=== PATIENT | male | born 1970 | race Caucasian/White ===

== ENCOUNTER 2018-06-12 08:32 | Emergency (ER) | payer MEDICAID, SELFPAY ==
[2018-06-12 08:33] VITALS: BP 161/104; PULSE 83; RESP 18; TEMP 36.6; O2SAT 98; BMI 28.8
--- NOTE | 2018-06-12 08:49 | ED.VISSUMM ---
- ER Visit Summary Date of Service: 06/12/18 Chief Complaint: Atraumatic left shoulder pain History of Present Illness: The patient is a 48 M no past medical or surgical history. Patient is right-hand dominant. He states the last 2 weeks he has had an achy constant pain in his left shoulder. Nothing particularly makes it better or worse. At times he believes there be swelling. He denies any fever or chills. No prior history of left shoulder problems nor any prior left shoulder surgeries. He denies any numbness or weakness to the left upper extremity. Physical Examination: Middle-aged male no acute distress. Vital signs are stable afebrile. We will. Neck nontender. Lungs clear to auscultation. Heart regular rhythm no murmur. Abdomen soft. Patient is moving all 4 extremities. Neurovascularly intact. Specifically the left shoulder there is no redness or warmth. He has full range of motion of the left shoulder including AB and adduction. Internal and external rotation. I do not appreciate any significant swelling. His C-spine and posterior shoulder are nontender. There are no gross bony deformities. The left clavicle is nontender. There is no AC abnormality or tenderness. Is able to lift his left arm over his head. He has full internal and external rotation. He has full flexion-extension of the left elbow, wrist and hand. Normal radial pulse. 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 Normal cap refill and touch sensation in his hand. Test Results: None Emergency Department Course and Treatment: I discussed with the patient imaging. I explained to him that we can do a left shoulder x-ray but given these had no trauma likelihood that B of any significant benefit today is unlikely. He understands he needs to follow-up with orthopedics if this does not improve with rest and ice and anti-inflammation. He may need more advanced imaging if this does not improve. Treatment Plan: Naprosyn 500 twice daily for 10 days. Rest and ice. Follow-up with [facility] if not improving. Disposition: Discharge Impression: Acute atraumatic, left shoulder pain of uncertain etiology This note was generated with [employer] dictation software. It may contain incorrect words, spelling, and punctuation that were not noted in review of the chart prior to signing ED Disposition - Plan for ED Patient: Chief Complaint: Upper Extremity Injury Referrals: NOT,DEFINED [Primary Care Provider] -
--- NOTE | 2018-06-12 08:53 | ED.DCSUM_ITS ---
- ER Visit Summary Date of Service: 06/12/18 Chief Complaint: Atraumatic left shoulder pain History of Present Illness: The patient is a 48 M no past medical or surgical history. Patient is right-hand dominant. He states the last 2 weeks he has had an achy constant pain in his left shoulder. Nothing particularly makes it better or worse. At times he believes there be swelling. He denies any fever or chills. No prior history of left shoulder problems nor any prior left shoulder surgeries. He denies any numbness or weakness to the left upper extremity. Physical Examination: Middle-aged male no acute distress. Vital signs are stable afebrile. We will. Neck nontender. Lungs clear to auscultation. Heart regular rhythm no murmur. Abdomen soft. Patient is moving all 4 extremities. Neurovascularly intact. Specifically the left shoulder there is no redness or warmth. He has full range of motion of the left shoulder including AB and adduction. Internal and external rotation. I do not appreciate any significant swelling. His C-spine and posterior shoulder are nontender. There are no gross bony deformities. The left clavicle is nontender. There is no AC abnormality or tenderness. Is able to lift his left arm over his head. He has full internal and external rotation. He has full flexion-extension of the left elbow, wrist and hand. Normal radial pulse. 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 Normal cap refill and touch sensation in his hand. Test Results: None Emergency Department Course and Treatment: I discussed with the patient imaging. I explained to him that we can do a left shoulder x-ray but given these had no trauma likelihood that B of any significant benefit today is unlikely. He understands he needs to follow-up with orthopedics if this does not improve with rest and ice and anti-inflammation. He may need more advanced imaging if this does not improve. Treatment Plan: Naprosyn 500 twice daily for 10 days. Rest and ice. Follow-up with [facility] if not improving. Disposition: Discharge Impression: Acute atraumatic, left shoulder pain of uncertain etiology This note was generated with [employer] dictation software. It may contain incorrect words, spelling, and punctuation that were not noted in review of the chart prior to signing ED Disposition - Plan for ED Patient: Chief Complaint: Upper Extremity Injury Referrals: NOT,DEFINED [Primary Care Provider] -
--- NOTE | 2018-06-12 08:57 | DCINST.ED_ITS ---
ED Disposition - Plan for ED Patient: Disposition: Home or Assisted Living Chief Complaint: Upper Extremity Injury Prescriptions: Naproxen [Naprosyn] 500 mg PO BID PRN PRN #20 tab PRN Reason: Pain Referrals: Nate Corbin DO [STAFF PHYSICIAN] - Additional Instructions: Ice, rest and Naprosyn for pain and inflammation. If this is not improving you need to up with [facility] Dr. Nate Corbin for further evaluation.
== END 2018-06-12 09:05 | disposition home or self-care (01) ==
PROVIDERS: Emergency Provider Emergency Medicine
DX: M25.512 Pain in left shoulder (principal)
CPT/HCPCS: 99283